=== PATIENT | male | born 1995 | race Caucasian/White ===

== ENCOUNTER 2019-06-30 13:57 | Emergency (ER) | payer BC, OTHER ==
[~2019-06-30] VITALS: Ht 172.7 cm; Wt 90.3 kg
--- NOTE | 2019-06-30 14:04 | NUR ---
PT AMBULATED TO ROOM WITH TECH. STEADY GAIT.
--- NOTE | 2019-06-30 14:10 | NUR ---
PT PRESENTED TO ED D/T MIDSTERNAL CP X2 WEEKS. PT STATES INCREASINGLY GETTING WORSE TODAY. DESCRIBES THE PAIN "THROBBING." PAIN GETS WORSE WHILE LYING FLAT. +SOB.
[2019-06-30] MEDS ORDERED: ONDANSETRON ODT 4 MG ONE (14:18)
[2019-06-30] MEDS ORDERED: MAALOX/HYOSCYAMINE/LIDOCAINE 45 ML BTL PO ONE (14:30)
[2019-06-30] MEDS ORDERED: ONDANSETRON ODT 4 MG PO ONE (14:30)
[2019-06-30] MEDS ORDERED: FAMOTIDINE 20 MG TABLET PO ONE (14:30)
[2019-06-30 14:41] LABS: BASOPHILS # (AUTO) 0.02 x10^3/uL (0-0.1); BASOPHILS % (AUTO) 1 % (0-1); EOSINOPHILS # (AUTO) 0.06 x10^3/uL (0-0.4); EOSINOPHILS % (AUTO) 2 % (1-7); LYMPHOCYTES # (AUTO) 1.87 x10^3/uL (1-3.4); LYMPHOCYTES % (AUTO) 47 % (22-44); MD NO; MEAN CORPUSCULAR HEMOGLOBIN 30.4 pg (27.5-34.5); MEAN CORPUSCULAR HGB CONC 34.4 g/dL (33.2-36.2); MEAN CORPUSCULAR VOLUME 88.6 fL (81-97); MEAN PLATELET VOLUME 8.4 fL (7.4-10.4); MONOCYTES # (AUTO) 0.29 x10^3/uL (0.2-0.8); MONOCYTES % (AUTO) 7 % (2-9); NEUTROPHILS # (AUTO) 1.76 x10^3/uL (1.8-6.8); NEUTROPHILS % (AUTO) 44 % (42-75); PLATELET COUNT 227 x10^3/uL (130-400); RED BLOOD COUNT 5.54 x10^6/uL (4.38-5.82); RED CELL DISTRIBUTION WIDTH 12.4 % (9.4-14.8)
[2019-06-30 14:47] LABS: ALANINE AMINOTRANSFERASE 45 U/L (12-78); ANION GAP 8 mmol/L (5-15); CHLORIDE 104 mmol/L (98-107); CREATININE 1.16 mg/dL (0.7-1.3)
--- NOTE | 2019-06-30 14:59 | NUR ---
PT MEDICATED PER EMAR.
[2019-06-30 15:10] LABS: ALKALINE PHOSPHATASE 85 U/L (45-117); BILIRUBIN,TOTAL 1.3 mg/dL (0.2-1.0); TOTAL PROTEIN 7.8 g/dL (6.4-8.2); TROPONIN I < 0.015 ng/mL (0.000-0.045)
[2019-06-30 16:27] VITALS: BP 120/57
[2019-06-30] MEDS ORDERED: PROMETHAZINE 25MG TABLET PO ONE (16:30)
--- NOTE | 2019-06-30 16:33 | NUR ---
PT DISCHARGED HOME IN A STABLE CONDITION. DC INSTRUCTIONS WERE DISCUSSED WITH PT. PT VERBALIZED UNDERSTANDING. PT AMBULATED WITH A STEADY GAIT WITH RN OUT OF ED.
== END 2019-06-30 16:35 | disposition home or self-care (01) ==
LOC: ED 14:04
DX: K29.00 Acute gastritis without bleeding (principal); R07.89 Other chest pain
CPT/HCPCS: 36415; 71045; 76700; 80053; 83690; 83880; 84484; 85025; 93005; 99285; Q0162

== ENCOUNTER 2019-07-25 10:09 | Emergency (ER) | payer BC ==
[~2019-07-25] VITALS: Ht 170.2 cm; Wt 90.0 kg
[2019-07-25 10:16] VITALS: BP 147/74
== END 2019-07-25 12:02 | disposition home or self-care (01) ==
LOC: ED 10:51
DX: S93.432A Sprain of tibiofibular ligament of left ankle, initial encounter (principal); X50.1XXA Overexertion from prolonged static or awkward postures, initial encounter; Y93.66 Activity, soccer; Y92.322 Soccer field as the place of occurrence of the external cause; Y99.8 Other external cause status
CPT/HCPCS: 29515; 99283

== ENCOUNTER 2019-11-30 09:39 | Observation (INO) | payer BC ==
[~2019-11-30] VITALS: Ht 170.2 cm; Wt 90.1 kg
--- NOTE | 2019-11-30 10:05 | NUR ---
THIS IS A 24 YO M W/ C/O INTERMITTENT CP X1 WEEK. PT ALSO REPORTS INTERMITTENT LT SHOULDER PAIN THAT DOES NOT CORRELATE W/ CP. PT RESTING ON [employer] W/ CALL LIGHT IN REACH AND SIDE RAILS UPX2. CONNECTED TO MONITORING. RESP EVEN AND UNLABORED, TRISTON.
[2019-11-30 10:44] LABS: BASOPHILS # (AUTO) 0.04 x10^3/uL (0-0.1); BASOPHILS % (AUTO) 1 % (0-1); EOSINOPHILS % (AUTO) 2 % (1-7); LYMPHOCYTES # (AUTO) 1.73 x10^3/uL (1-3.4); LYMPHOCYTES % (AUTO) 43 % (22-44); MD NO; MEAN CORPUSCULAR HGB CONC 34.1 g/dL (33.2-36.2); MEAN PLATELET VOLUME 7.9 fL (7.4-10.4); MONOCYTES # (AUTO) 0.24 x10^3/uL (0.2-0.8); MONOCYTES % (AUTO) 6 % (2-9); NEUTROPHILS # (AUTO) 1.88 x10^3/uL (1.8-6.8); NEUTROPHILS % (AUTO) 47 % (42-75); PLATELET COUNT 221 x10^3/uL (130-400); RED BLOOD COUNT 5.33 x10^6/uL (4.38-5.82); RED CELL DISTRIBUTION WIDTH 13.4 % (9.4-14.8)
[2019-11-30 10:49] LABS: ALBUMIN 3.9 g/dL (3.4-5.0); ANION GAP 7 mmol/L (5-15); CALCIUM 8.9 mg/dL (8.5-10.1); CHLORIDE 110 mmol/L (98-107)
[2019-11-30 10:54] LABS: ALANINE AMINOTRANSFERASE 47 U/L (12-78); ALKALINE PHOSPHATASE 97 U/L (45-117); CREATININE 0.99 mg/dL (0.7-1.3); TOTAL PROTEIN 7.7 g/dL (6.4-8.2)
--- NOTE | 2019-11-30 11:36 | NUR ---
AT BEDSIDE FOR EVAL.
--- NOTE | 2019-11-30 11:39 | NUR ---
PT AMBULATED TO THE BR W/ A STEADY GAIT.
--- NOTE | 2019-11-30 12:07 | NUR ---
PT UPDATED ON POC FOR TROP REDRAW AT 1300. RESTING ON [employer] W/ CALL LIGHT IN REACH, CONNECTED TO MONITORING, VSS, NADN.
--- NOTE | 2019-11-30 12:38 | NUR ---
TELEPHONE CALL TO LAB REGARDING 1300 TROP REDRAW. DEO PAIGE STATES SHE WILL UNCANCEL ORDER.
--- NOTE | 2019-11-30 13:00 | NUR ---
LAB IN ROOM FOR REDRAW.
[2019-11-30 13:23] LABS: TROPONIN I 0.055 ng/mL (0.000-0.045)
--- NOTE | 2019-11-30 13:28 | NUR ---
RECEIVED REPORT FROM ANUP CLEMENTE, PLAN OF CARE DISCUSSED
[2019-11-30] MEDS ORDERED: ASPIRIN 81 MG TABLET CHEW PO ONE (13:30)
[2019-11-30] MEDS ORDERED: ASPIRIN 81 MG TABLET CHEW ONE (13:31)
--- NOTE | 2019-11-30 14:53 | NUR ---
REPORT TO EDILSON CLEMENTE PLAN OF CARE DISCUSSED.
[2019-11-30] MEDS ORDERED: ONDANSETRON ODT 4 MG PO PRN (15:30)
[2019-11-30] MEDS ORDERED: ONDANSETRON 2MG/ML, 2ML IVPush PRN (15:30)
[2019-11-30] MEDS ORDERED: BISACODYL 10 MG SUPP PR PRN (15:30)
[2019-11-30] MEDS ORDERED: NITROGLYCERIN 0.4 MG BOTTLE (25 TABS) SL PRN (15:30)
[2019-11-30] MEDS ORDERED: ACETAMINOPHEN 325 MG TABLET PO PRN (15:30)
[2019-11-30 16:26] VITALS: BP 128/76
[2019-11-30 17:22] LABS: TROPONIN I 0.043 ng/mL (0.000-0.045)
[2019-11-30 19:25] LABS: TROPONIN I 0.044 ng/mL (0.000-0.045)
[2019-11-30 21:00] VITALS: BP 126/71
[2019-11-30 23:37] LABS: TROPONIN I 0.038 ng/mL (0.000-0.045)
[2019-12-01 02:46] VITALS: BP 110/61
[2019-12-01 05:54] LABS: ANION GAP 6 mmol/L (5-15); CHLORIDE 110 mmol/L (98-107); CREATININE 1.12 mg/dL (0.7-1.3)
[2019-12-01] MEDS ORDERED: ASPIRIN 325 MG TABLET EC PO SCH (06:00)
[2019-12-01 08:45] VITALS: BP 116/71
[2019-12-01] MEDS ORDERED: SENNA/DOCUSATE TABLET PO SCH (09:00)
== END 2019-12-01 12:30 | disposition home or self-care (01) ==
LOC: ED 10:02 → EDIP 14:07 → INTOOBSV 14:07 → 5SO 15:32 → DCLOUNGE 12-01 12:24
PROVIDERS: ADMIT Family Medicine; ATTEND Family Medicine
DX: R07.89 Other chest pain (principal); N18.2 Chronic kidney disease, stage 2 (mild); F12.10 Cannabis abuse, uncomplicated; R79.89 Other specified abnormal findings of blood chemistry
CPT/HCPCS: 36415; 71045; 80048; 80053; 84443; 84484; 85025; 93005; 99285; G0378